=== PATIENT | female | born 2000 ===

== ENCOUNTER 2024-04-03 12:38 | Inpatient (IN) | payer OTHER ==
[2024-04-03] MEDS ORDERED: OXYTOCIN 20 UNITS in 0.9% NS 20 UNIT/1,000 ML INFUS.BAG IV ONE ×2 (12:50→16:38)
[2024-04-03 13:19] VITALS: BMI 27.4
[2024-04-03 14:01] LABS: HEMATOCRIT 37.4 % (32.4-45.2); HEMOGLOBIN 12.3 GM/dL (10.7-15.3); MCH 29.9 pg (25.7-33.7); MCHC 32.9 g/dl (32.0-36.0); MEAN CELL VOLUME 90.7 fl (80-96); MEAN PLT VOLUME 7.7 fl (7.5-11.1); PLATELET COUNT 275 10^3/uL (134-434); RBC 4.13 M/mm3 (3.60-5.2); RDW 15.5 % (11.6-15.6); WHITE BLOOD COUNT 15.7 K/mm3 (4.0-10.0)
[2024-04-03 14:08] LABS: INR 1.01 (0.83-1.09); PROTHROMBIN TIME (PATIENT) 11.1 SEC (9.7-13.0)
[2024-04-03] MEDS ORDERED: LIDOCAINE HCL 1% PRESERVATIVE FREE - 30ML VIAL ONE (14:09)
[2024-04-03 14:11] LABS: ACTIVATED PTT 27.2 SECONDS (25.2-36.5)
[2024-04-03 14:16] LABS: POTASSIUM 4.1 mmol/L (3.5-5.1)
[2024-04-03 14:17] LABS: CALCIUM 9.7 mg/dL (8.5-10.1)
[2024-04-03 14:21] LABS: CREATININE 0.8 mg/dL (0.55-1.3)
[2024-04-03 14:59] LABS: CORD BASE EXCESS -7.8 mmol/L (0-2); CORD HCO3 18.8 mmHg (20-29); CORD PCO2 41.9 mmHg (30-78); CORD pH 7.269 (7.14-7.44)
[2024-04-03 15:22] LABS: ANISOCYTOSIS 0; HELMET CELLS 0; HOWELL-JOLLY BODIES 0; MACROCYTOSIS 0; OVALOCYTE 0; ROULEAU 0; SICKELED CELLS 0; TARGET CELLS 0; TEAR DROP CELLS 0; TOXIC GRANULATION 0
[2024-04-03] MEDS ORDERED: WITCH HAZEL 50% (TUCKS) 40 PAD/JAR PAD TP PRN (15:23)
[2024-04-03] MEDS: IBUPROFEN 600 MG TABLET (FP) PO PRN (15:28)
[2024-04-03] MEDS ORDERED: DEXTROSE 5%-LACTATED RINGERS 1,000 ML IV SCH (15:30)
[2024-04-03] MEDS: OXYTOCIN 20 UNITS in 0.9% NS 20 UNIT/1,000 ML INFUS.BAG IV SCH (16:30)
[2024-04-03] MEDS: BENZOCAINE 28 GM HEMORRHOIDAL OINTMENT TP PRN (18:34)
[2024-04-03] MEDS: FERROUS SO4 325 MG TABLET (FP) PO SCH (18:34)
[2024-04-04 08:13] LABS: BASO % 0.1 % (0-2.0); EOS % 0.1 % (0-4.5); HEMATOCRIT 29.5 % (32.4-45.2); HEMOGLOBIN 9.8 GM/dL (10.7-15.3); LYMPH % 8.3 % (8-40); MCH 30.1 pg (25.7-33.7); MCHC 33.1 g/dl (32.0-36.0); MEAN PLT VOLUME 7.6 fl (7.5-11.1); MONO % 10.1 % (3.8-10.2); NEUT % 81.4 % (42.8-82.8); PLATELET COUNT 203 10^3/uL (134-434); RBC 3.24 M/mm3 (3.60-5.2); RDW 15.3 % (11.6-15.6); WHITE BLOOD COUNT 11.9 K/mm3 (4.0-10.0)
[2024-04-04] MEDS: ACETAMINOPHEN 325 MG TABLET (FP) PO PRN (09:21)
[2024-04-04] MEDS: PRENATAL VITAMINS W/ FOLIC ACID TABLET (FP) PO SCH (09:21)
[2024-04-04 10:25] VITALS: RESP 18
[2024-04-05 11:13] VITALS: BP 99/69; PULSE 113; TEMP 98.1
== END 2024-04-05 13:00 | disposition home or self-care (01) | DRG 560 ==
LOC: JDEL 12:38 → JLDR 12:40 → J3W 16:50
PROVIDERS: ADMIT Obstetrics & Gynecology Maternal & Fetal Medicine; ATTEND Obstetrics & Gynecology Maternal & Fetal Medicine
PROC: 10E0XZZ Delivery of Products of Conception, External Approach (ICD-10-PCS; principal; 2024-04-03)
PROC: 0W8NXZZ Division of Female Perineum, External Approach (ICD-10-PCS; 2024-04-03)
PROC: 0HQ9XZZ Repair Perineum Skin, External Approach (ICD-10-PCS; 2024-04-03)
DX: O70.0 First degree perineal laceration during delivery (principal); Z3A.39 39 weeks gestation of pregnancy; Z37.0 Single live birth
CPT/HCPCS: 36415; 36600; 59409; 80048; 82803; 85025; 85610; 85730; 86780; 86850; 86900; 86901; 88307-TC